=== PATIENT | female | born 1955 | race Two or more races ===

== ENCOUNTER 2018-08-10 09:33 | Outpatient (CLI) | payer OTHER ==
[~2018-08-10 09:33] MED LIST: BENADRYL50 MG PO; KETO10TA2 PO; LODINE XL400 MG PO; MOTRIN100 MG PO; ORPH100T PO
== END 2018-08-10 17:00 | disposition home or self-care (01) ==
LOC: MAMO-SONO 09:33
DX: Z12.31 Encounter for screening mammogram for malignant neoplasm of breast (principal)

== ENCOUNTER 2018-08-13 12:56 | Outpatient (CLI) | payer OTHER | END 2018-08-13 13:07 | disposition home or self-care (01) | LOC: RAD 501 12:56 | DX: S52.531A Colles' fracture of right radius, initial encounter for closed fracture (principal) ==

== ENCOUNTER → 2018-08-24 08:19 | Outpatient (CLI) | payer OTHER | END | disposition home or self-care (01) | LOC: LAB 08:19 | DX: E21.2 Other hyperparathyroidism (principal); M81.8 Other osteoporosis without current pathological fracture; E56.1 Deficiency of vitamin K; E55.9 Vitamin D deficiency, unspecified; M85.9 Disorder of bone density and structure, unspecified; E88.89 Other specified metabolic disorders; E83.42 Hypomagnesemia ==

== ENCOUNTER 2018-08-26 09:31 | Outpatient (CLI) | payer OTHER | END 2018-08-26 09:41 | disposition home or self-care (01) | LOC: RAD 501 09:31 | DX: S52.571A Other intraarticular fracture of lower end of right radius, initial encounter for closed fracture (principal) ==

== ENCOUNTER 2018-10-20 09:08 | Outpatient (CLI) | payer OTHER | END 2018-10-20 09:31 | disposition home or self-care (01) | LOC: LAB 09:08 | DX: I11.0 Hypertensive heart disease with heart failure (principal); D53.8 Other specified nutritional anemias; N39.0 Urinary tract infection, site not specified; E78.2 Mixed hyperlipidemia; E04.0 Nontoxic diffuse goiter; E20.0 Idiopathic hypoparathyroidism; E61.2 Magnesium deficiency; E61.7 Deficiency of multiple nutrient elements; R82.79 Other abnormal findings on microbiological examination of urine ==

== ENCOUNTER 2018-12-21 07:28 | Outpatient (CLI) | payer OTHER | END 2018-12-21 17:00 | disposition home or self-care (01) | LOC: MRI 07:28 | DX: C75.3 Malignant neoplasm of pineal gland (principal) | CPT/HCPCS: 70553 ==

== ENCOUNTER 2019-12-19 10:25 | Outpatient (CLI) | payer OTHER | END 2019-12-19 10:36 | disposition home or self-care (01) | LOC: RAD 10:25 | DX: M25.532 Pain in left wrist (principal) ==

== ENCOUNTER 2020-01-05 16:41 | Outpatient (CLI) | payer OTHER | END 2020-01-05 17:55 | disposition home or self-care (01) | LOC: RAD 16:41 | DX: M25.532 Pain in left wrist (principal) ==

== ENCOUNTER 2020-11-28 08:12 | Outpatient (CLI) | payer OTHER | END 2020-11-28 08:27 | disposition home or self-care (01) | LOC: LAB 08:12 | PROVIDERS: ATTEND Internal Medicine Endocrinology, Diabetes & Metabolism | DX: D53.8 Other specified nutritional anemias (principal); E04.8 Other specified nontoxic goiter; E78.2 Mixed hyperlipidemia; I11.9 Hypertensive heart disease without heart failure; E55.9 Vitamin D deficiency, unspecified; N39.0 Urinary tract infection, site not specified; E11.9 Type 2 diabetes mellitus without complications; E61.7 Deficiency of multiple nutrient elements; E61.3 Manganese deficiency ==

== ENCOUNTER 2021-05-24 09:42 | Emergency (ER) | payer OTHER ==
[~2021-05-24] VITALS: Ht 162.6 cm; Wt 59.9 kg
[2021-05-24] MEDS ORDERED: KETO10TA2 PO (14:03)
[2021-05-24] MEDS ORDERED: ORPHENADRINE C100 MG PO (14:03)
== END 2021-05-24 14:35 | disposition home or self-care (01) ==
LOC: ER 09:42
DX: S30.0XXA Contusion of lower back and pelvis, initial encounter (principal); W18.39XA Other fall on same level, initial encounter; Y93.89 Activity, other specified; Y92.098 Other place in other non-institutional residence as the place of occurrence of the external cause; Y99.8 Other external cause status

== ENCOUNTER 2022-01-06 09:49 | Inpatient (IN) | payer OTHER ==
[~2022-01-06] VITALS: Ht 172.7 cm; Wt 59.9 kg
[~2022-01-06 09:49] MED LIST changes: +ORPHENADRINE C100 MG PO
[2022-01-07] MEDS ORDERED: KETO10TA2 (10:32)
[2022-01-07] MEDS ORDERED: ORPHENADRINE C100 MG PO (10:33)
== END 2022-01-16 20:23 | DRG 522 ==
LOC: ER 09:49 → SURG 20:28
PROVIDERS: ADMIT Orthopaedic Surgery; ATTEND Orthopaedic Surgery
PROC: 0SRS0JZ Replacement of Left Hip Joint, Femoral Surface with Synthetic Substitute, Open Approach (ICD-10-PCS; principal; 2022-01-06)
DX: S72.002A Fracture of unspecified part of neck of left femur, initial encounter for closed fracture (principal); N39.0 Urinary tract infection, site not specified; M25.552 Pain in left hip; Z20.822 Contact with and (suspected) exposure to COVID-19; R41.82 Altered mental status, unspecified; B96.5 Pseudomonas (aeruginosa) (mallei) (pseudomallei) as the cause of diseases classified elsewhere; G31.9 Degenerative disease of nervous system, unspecified

== ENCOUNTER 2022-02-26 09:01 | Outpatient (CLI) | payer OTHER ==
[~2022-02-26 09:01] MED LIST changes: +KETO10TA2
== END 2022-02-26 09:04 | disposition home or self-care (01) ==
LOC: NUCLEAR 09:01
PROVIDERS: ATTEND Orthopaedic Surgery
DX: M81.0 Age-related osteoporosis without current pathological fracture (principal)